=== PATIENT | female | born 1945 ===

== ENCOUNTER 2023-07-02 19:15 | Emergency (ER) | payer BC, MEDICARE ==
[~2023-07-02] VITALS: Ht 167.6 cm; Wt 73.5 kg
[~2023-07-02 19:15] MED LIST: ACET-3315 PO; BISA10SU61 RC; CALC-15 PO; HYDR-3974 PO; LACT10SO58 PO; LATA2.5D2 OP; LEVO25TA9 PO; MAGN400O6 PO; MULT1TAB11 PO; NA P133E RC; PANT40TA49 PO; TIMO5DRO18 OP
[2023-07-02] MEDS ORDERED: ACETAMINOPHEN ES 500 MG TABLET PO ONE (19:30)
[2023-07-02] MEDS ORDERED: ACETAMINOPHEN ES 500 MG TABLET ONE (19:34)
[2023-07-02] MEDS ORDERED: OLANZAPINE 10 MG VIAL IM ONE ×2 (20:08→20:15)
[2023-07-02] MEDS ORDERED: KETOROLAC TROMETHAMINE 15 MG INJ IM ONE (21:45)
[2023-07-02] MEDS ORDERED: KETOROLAC TROMETHAMINE 15 MG INJ ONE (21:45)
[2023-07-02] MEDS ORDERED: TDAP DIPH,PERTUSS,TET VAC/PF 0.5 ML DISP.SYRIN IM ONE ×2 (21:52→22:00)
[2023-07-02 22:44] VITALS: BP 129/75; TEMP 98.4; O2SAT 99
== END 2023-07-02 21:56 ==
LOC: ER 19:15
DX: S01.01XA Laceration without foreign body of scalp, initial encounter (principal); F03.90 Unspecified dementia, unspecified severity, without behavioral disturbance, psychotic disturbance, mood disturbance, and anxiety; E03.9 Hypothyroidism, unspecified; Z79.899 Other long term (current) drug therapy; W01.0XXA Fall on same level from slipping, tripping and stumbling without subsequent striking against object, initial encounter; Y93.89 Activity, other specified; Y92.89 Other specified places as the place of occurrence of the external cause; Y99.8 Other external cause status
CPT/HCPCS: 70450; 72125; 72170; 73502; 90715; A4663; A9150; J1885; J2358

== ENCOUNTER 2023-07-17 21:19 | Emergency (ER) | payer BC ==
[~2023-07-17] VITALS: Ht 167.6 cm; Wt 72.2 kg
[2023-07-17] MEDS ORDERED: OLANZAPINE 10 MG VIAL IM ONE ×2 (21:30→21:33)
[2023-07-17] MEDS ORDERED: IV NORMAL SALINE 1000 ML BAG IV ONE (21:30)
[2023-07-17 22:04] LABS: BASOPHILS # (AUTO) 0.1 K/UL (0.0-0.2); BASOPHILS % (AUTO) 0.7 % (0.0-2.0); EOSINOPHILS # (AUTO) 0.2 K/uL (0.0-0.7); EOSINOPHILS % (AUTO) 1.5 % (0.0-7.0); HEMATOCRIT 37.8 % (31.2-41.9); LYMPHOCYTES # (AUTO) 2.2 K/uL (0.8-4.8); LYMPHOCYTES % (AUTO) 14.8 % (20.5-51.5); MEAN CORPUSCULAR HEMOGLOBIN 27.8 uug (24.7-32.8); MEAN CORPUSCULAR HGB CONC 32 g/dL (32.3-35.6); MEAN CORPUSCULAR VOLUME 87.2 fL (75.5-95.3); MONOCYTES # (AUTO) 1.2 K/uL (0.1-1.30); MONOCYTES % (AUTO) 8.2 % (0.0-11.0); NEUTROPHILS % (AUTO) 74.8 % (38.5-71.5); PLATELET COUNT (AUTO) 326 K/uL (179-408); RED BLOOD CELL COUNT(AUTO) 4.33 MIL/uL (3.63-4.92); WHITE BLOOD COUNT (AUTO) 14.7 K/uL (3.8-11.8)
[2023-07-17 22:11] LABS: DIFFERENTIAL COMMENT 1
[2023-07-17 22:17] LABS: CALCIUM 8.5 mg/dL (8.5-10.1); CARBON DIOXIDE 30 mmol/L (21-32); CHLORIDE 102 mmol/L (98-107); CREATININE 1.9 mg/dL (0.6-1.3); GLUCOSE 127 mg/dL (74-106); POTASSIUM 4.1 mmol/L (3.5-5.1); SODIUM SERUM 138 mmol/L (136-145); UREA NITROGEN, BLOOD 31 mg/dL (7-18)
[2023-07-17 22:25] LABS: ALANINE AMINOTRANSFERASE 15 U/L (14-59); ALBUMIN 3.4 g/dL (3.4-5.0); ALKALINE PHOSPHATASE 227 U/L (50-136); ASPARTATE AMINOTRANSFERASE 16 U/L (15-37); BILIRUBIN,DIRECT 0.2 mg/dL (0.0-0.2); BILIRUBIN,TOTAL 0.4 mg/dL (0.2-1.0); TOTAL PROTEIN, SERUM 7.2 g/dL (6.4-8.2)
[2023-07-17] MEDS ORDERED: CEPH500T PO (23:54)
[2023-07-18 01:16] VITALS: BP 99/64; TEMP 98; O2SAT 98
== END 2023-07-18 01:16 ==
LOC: ER 21:21
DX: S01.01XA Laceration without foreign body of scalp, initial encounter (principal); R51.9 Headache, unspecified; M54.2 Cervicalgia; R07.89 Other chest pain; E03.9 Hypothyroidism, unspecified; Z79.899 Other long term (current) drug therapy; W18.39XA Other fall on same level, initial encounter; Y93.89 Activity, other specified; Y92.89 Other specified places as the place of occurrence of the external cause; Y99.8 Other external cause status
CPT/HCPCS: 12001; 36415; 70450; 71045; 72125; 80048; 80076; 83605; 84484; 85025; 85730; 86850; 86900; 86901; 87040; 93005; 96360; 96361; 96372; 99285; J7040; A4663; J2358